=== PATIENT | male | born 1970 | race Caucasian/White ===

== ENCOUNTER → 2016-12-16 | Day surgery (SDC) | payer OTHER ==
[~2016-12-16] VITALS: Ht 177.8 cm; Wt 88.5 kg
--- NOTE | 2016-12-16 09:24 | Operative Report ---
Operative/Inv Procedure Report Surgery Date: 12/16/16 Name of Procedure: Excision left abdominal wall mass Pre-Operative Diagnosis: Lipoma Post-Operative Diagnosis: Same Estimated Blood Loss: scant Surgeon/Boom Operator: ALANIS RICO MD Anesthesia: local monitored anesthesi Specimens: 3 cm lipoma Operative/Procedure Note Note: After consent is brought to the operative laid supine. Sedation was obtained and his left abdomen was prepped and draped. The skin overlying the mass was infiltrated cocktail local anesthesia. A transverse incision was made along Isael's lines. Dissected through the subcutaneous tissues tissues with cautery and sharp dissection. The mass was identified in the subcutaneous tissues and circumferentially dissected. It was passed off the field. Hemostasis was achieved cautery. Wound was irrigated with saline. Incision was then closed in 2 layers of 3-0 and 4-0 Vicryl sutures. Steri-Strips and sterile dressing applied. Sponge and needle counts are correct
== END ==
LOC: STS 04:01
DX: D17.1 Benign lipomatous neoplasm of skin and subcutaneous tissue of trunk (principal); J45.909 Unspecified asthma, uncomplicated
CPT/HCPCS: 88304